=== PATIENT | female | born 1975 | race African-American/Black ===

== ENCOUNTER 2018-04-04 14:21 | Outpatient (CLI) | payer MEDICARE ==
--- NOTE | 2018-04-04 14:57 | RAD ---
RIGHT WRIST THREE VIEWS: History: Right wrist pain. FINDINGS: The joint spaces appear well preserved. No old or new fracture seen. No arthritic change. IMPRESSION: Unremarkable right wrist. POS: C
== END 2018-04-04 14:22 | disposition home or self-care (01) ==
LOC: BICRAD 14:21
DX: M25.531 Pain in right wrist (principal)